=== PATIENT | female | born 1980 | race Asian ===

== ENCOUNTER 2017-06-26 15:56 | Outpatient (CLI) | payer OTHER | END 2017-06-26 15:57 | disposition home or self-care (01) | LOC: LABHHL 15:56 | PROVIDERS: ATTEND Surgery | DX: C50.911 Malignant neoplasm of unspecified site of right female breast (principal) | CPT/HCPCS: 88305; 88342; 88361 ==

== ENCOUNTER 2017-07-08 05:58 | Day surgery (SDC) | payer BC ==
[2017-07-08] MEDS ORDERED: XYLOCAINE 1% 20 mL ONE (06:31)
[2017-07-08] MEDS ORDERED: HEPARIN 10,000 UNITS/10 ML ONE (06:31)
[2017-07-08] MEDS ORDERED: MARCAINE 0.25% INFILTRATI ONE ×3 (06:31→08:05)
[2017-07-08] MEDS ORDERED: NACL 0.9% 100 ML ONE (06:31)
[2017-07-08] MEDS ORDERED: NACL BACTERIOSTATIC INFILTRATI ONE (06:37)
--- NOTE | 2017-07-08 06:58 | Anesthesia Consultation ---
Anesthesia Consult and Med Hx Date of service: 07/08/17 - Airway Anesthetic Teeth Evaluation: Good ROM Head & Neck: Adequate Mental/Hyoid Distance: Adequate Mallampati Class: Class I Intubation Access Assessment: Good (Hysterectomy without anesthetic complication ) - Pulmonary Exam CTA: Yes - Cardiac Exam Cardiac Exam: RRR - Pre-Operative Health Status ASA Pre-Surgery Classification: ASA2 Proposed Anesthetic Plan: General - Pulmonary Hx Smoking: No Hx Asthma: No - Cardiovascular System Hx Hypertension: No - Central Nervous System Hx Neuromuscular Disorder: No Hx Psychiatric Problems: Yes - Gastrointestinal Hx Gastroesophageal Reflux Disease: No - Endocrine Hx Renal Disease: No - Other Systems Hx Alcohol Use: No Hx Substance Use: No Hx Cancer: Yes
[2017-07-08] MEDS ORDERED: ANCEF/STERILE WATER 2 GM/20 ML IV NR (07:00)
--- NOTE | 2017-07-08 07:01 | Anesthesia Day of Surgery ---
Anesthesia Day of Surgery - Day of Surgery Patient Examined: Yes Patient H&P Reviewed: Yes Patient is NPO: Yes
[2017-07-08] MEDS ORDERED: LACTATED RINGERS 1,000 ML ONE (07:27)
[2017-07-08] MEDS ORDERED: ZOFRAN IV PRN (07:30)
[2017-07-08] MEDS ORDERED: VERSED ONE (07:38)
[2017-07-08] MEDS ORDERED: SUBLIMAZE ONE (07:40)
[2017-07-08] MEDS ORDERED: DIPRIVAN 10 MG/ML IV ONE ×2 (07:40→08:04)
[2017-07-08] MEDS ORDERED: PEPCID IV NR (08:00)
[2017-07-08] MEDS ORDERED: DILAUDID IV PRN (08:00)
[2017-07-08] MEDS ORDERED: XYLOCAINE 1% 20 mL INFILTRATI ONE ×2 (08:05)
[2017-07-08] MEDS ORDERED: HEPARIN 10,000 UNITS/10 ML IR ONE (08:12)
[2017-07-08] MEDS ORDERED: ZOFRAN ONE (08:36)
[2017-07-08] MEDS ORDERED: DECADRON ONE (08:36)
--- NOTE | 2017-07-08 09:03 | Short Stay Summary ---
Short Stay Documentation Date of service: 07/08/17 Narrative H&P: 37 yo F with recently diagnosed right breast cancer. The patient was referred by Dr. Beyer and Dr. Elizondo for placement of a port because she is a candidate for chemotherapy. The patient has no complaints. - History Principal diagnosis: right breast cancer H&P: obtained from office - Allergies and Medications Current Medications: Allergies latex Allergy (Verified 07/07/17 11:30) Rash Home Medications Medication Instructions Recorded Confirmed Last Taken Type Lisdexamfetamine Dimesylate 70 mg PO DAILY 07/07/17 07/07/17 Unknown History [Vyvanse] Active Medications Cefazolin Sodium (Ancef/Sterile Water 2 Gm/20 Ml) 2 gm IV PREOP NR Stop: 07/08/17 23:59 Famotidine (Pepcid) 20 mg IV PREOP NR Stop: 07/08/17 21:00 Last Admin: 07/08/17 07:29 Dose: 20 mg Hydromorphone HCl (Dilaudid) 0.5 mg IV Q10MIN PRN PRN Reason: Pain , Severe (7-10) Stop: 07/08/17 15:00 Ondansetron HCl (Zofran) 4 mg IV ONCE PRN PRN Reason: Nausea And Vomiting Stop: 07/08/17 11:00 - Brief post op/procedure progress note Date of procedure: 07/08/17 Pre-op diagnosis: right breast cancer Post-op diagnosis: same Procedure: Left subclavian port a cath placement with ultrasound guidance Anesthesia: MAC, local Findings: good placement of port without pneumothorax on post op CXR Surgeon: JOSÉ LUIS MAE Estimated blood loss: minimal Pathology: none Condition: stable - Hospital course Hospital course: Patient was observed in the PACU and discharged in stable condition once criteria was met. - Disposition Condition at discharge: Good Disposition: DC-01 TO HOME OR SELFCARE - Discharge Diagnoses (1) Breast cancer, right Status: Acute Short Stay Discharge Plan Activity: other (do not drive if taking narcotic pain meds) Diet: regular Wound: open to air, other (may shower tomorrow, pat incisions dry, do not scrub. May use soap and water. Do not submerge incisions in water until healed.) Additional Instructions: Please follow up with Dr. Beyer in 2 weeks. You do not need to follow up with Dr. Mae. Please call surgeon's office if you have fever >100.4, drainage or redness around the incision, problems with port access Follow up with: FARTUN CARO MD [Primary Care Provider] - 7 Days JOSÉ LUIS MAE DO [Staff Physician] - 7 Days LEON MITCHELL MD [Staff Physician] - 07/13/17 ALFONSO BEYER MD [Staff Physician] - 14 Days Prescriptions: traMADol [Ultram 50 MG tab] 50 mg PO Q6HR PRN #20 tablet PRN Reason: Pain
--- NOTE | 2017-07-08 09:10 | Post Anesthesia Evaluation ---
- Post Anesthesia Evaluation Patient Participated: Yes Airway Patent: Yes Stable Respiratory Function: Yes Nausea/Vomiting: No Temp > 96.8F: Yes Pain Manageable: Yes Adequeate Hydration: Yes Anesthesia Complications: No
[2017-07-08] MEDS ORDERED: PERCOCET 5/325 ONE (09:15)
--- NOTE | 2017-07-08 09:25 | Fluoroscopy Report ---
Portable chest: Port position. Operative exam demonstrating left port. The catheter tip via the left subclavian vein is located in the low SVC. The lungs are clear and fully inflated. The mediastinal contour is unremarkable. Impression: Well-positioned port. No complication identified.
[2017-07-08] MEDS ORDERED: PERCOCET 5/325 PO PRN (09:30)
[2017-07-08 10:19] VITALS: BP 136/86
--- NOTE | 2017-07-10 09:31 | Operative Report ---
Operative Report Operative Report: Please see OP report dictated
--- NOTE | 2017-07-10 11:09 | Operative Report ---
Operative Report Operative Report: Date of operation: 07/08/17 Reoperative diagnosis: Right-sided breast cancer Postoperative diagnosis: Same as above Procedure performed: Placement of left subclavian Port-A-Cath with ultrasound guidance Surgeon: Dk Scales DO Anesthesia: MAC, local Findings: On intraoperative CXR - good placement of port and no PTX EBL: <10cc Complications: none Disposition: stable to PACU HPI and indication: Patient is a 37-year-old female who has recently been diagnosed with right-sided breast cancer. The patient is seen by Dr. Beyer is now patient and Dr. Grady for hematology/oncology and deemed a candidate for chemotherapy. All of the risks associated with the procedure were discussed with the patient including but not limited to pneumothorax, infection, bleeding , malpositioned port, injury to other structures. The patient understands and all questions were answered. Consent was signed and placed on chart. Procedure in detail: The patient was identified in the preoperative area, taken back to operating room, placed on operating table in supine position. After anesthesia was induced both arms were tucked and upper chest and neck were prepped and draped in usual sterile fashion. A timeout was performed. The was placed in Trendelenburg position. Local anesthetic was infiltrated into the skin at the intended puncture site. The left subclavian vein was visualized using the ultrasound was accessed on the first stick. There was return of dark red, nonpulsatile blood. The wire was threaded under fluoroscopy without resistance and positioning confirmed. The needle was then removed. Using a 15 blade, an incision was made in the LEFT upper chest and dissection carried down through the skin and subcutaneous tissue using Bovie electrocautery. Hemostasis was achieved along the way. A pocket for the port was then created bluntly and with electrocautery. The catheter was flushed and tunneled from the pocket to the wire. A breakaway catheter/dilator sheath then inserted over the wire under fluoroscopy, and the wire and dilator removed. The catheter was then inserted through the breakaway catheter which was then removed. The catheter sat flush under the skin. Using continuous fluoroscopy, the catheter was pulled back until the tip was visualized in the right atrium. The catheter was then cut to size and the port attached in the usual fashion. The port was then sutured into place to the pre-pectoral fascia using 2-0 Vicryl interrupted sutures. The wound was irrigated and hemostasis ensured. The port was tested with heparinized saline and there was return of blood and it flushed easily. The port was then instilled with 3000 units of heparin. The deep dermal layer was then closed with interrupted 3-0 Vicryl stitches. The skin incisions were closed with 4-0 Monocryl subcuticular stitches and skin glue. Intraoperative chest x-ray did show good positioning of the port, without evidence of pneumothorax At the end of the case, all sponge, instrument, sharp counts were correct 2. The patient was awoken from anesthesia and taken to PACU in stable condition
== END 2017-07-08 10:25 | disposition home or self-care (01) ==
LOC: OR 05:58
PROVIDERS: ATTEND Surgery
DX: C50.311 Malignant neoplasm of lower-inner quadrant of right female breast (principal); Z91.040 Latex allergy status; Z90.710 Acquired absence of both cervix and uterus
CPT/HCPCS: 36561; 77001; C1769; C1788; J0690; J1100; J1644; J2250; J2405; J2704; J3010; J7120

== ENCOUNTER 2017-07-09 15:05 | Outpatient (CLI) | payer BC ==
--- NOTE | 2017-07-10 15:54 | Magnetic Resonance Report ---
BILATERAL BREAST MRI WITHOUT AND WITH CONTRAST: 07/09/17 15:05:00 CLINICAL: Newly diagnosed right breast cancer. Status post needle biopsy of a right breast mass at 6 o'clock on 06/26/17 with pathologic diagnosis of invasive mammary carcinoma with ductal and lobular features. [place] grade III/III (poorly differentiated). COMPARISON:06/17/17 bilateral mammogram. TECHNIQUE: Axial 1.0-mm T1 without, axial high resolution 2.0-mm T2 and axial 1.0-mm dynamic Vibrant high-resolution postcontrast T1 fat saturation sequences on a 1.5 Jacqueline magnet. The examination was performed with an 8 channel dedicated [place] breast coil. Post processing with CAD and subtraction was performed on an [employer] workstation. 14.0 cc of Multihance was injected without incident for the contrast portion of the exam. Consent was obtained prior to the administration of the contrast. FINDINGS: Right: Mild background parenchymal enhancement. The known cancer is an irregular band of enhancing mass in the lower inner quadrant approximately 7 cm from the nipple measuring 7.5 x 5.7 x 5.0 cm. It demonstrates heterogeneous enhancement with mixed kinetics, 547% peak enhancement and 57% type III washout. A biopsy clip is identified within the mass. A second mass in the upper outer quadrant 10.4 cm from the nipple measures 3.5 x 2.3 x 1.6 cm. It demonstrates heterogeneous enhancement with mixed kinetics, 647% peak enhancement and 38% type III washout. Together the 2 masses span approximately 9 cm from anterior to posterior. 2 suspicious right level I axillary lymph nodes. The larger lymph node measures 1.6 cm with a cortical thickness of 7 mm. Left: Minimal background parenchymal enhancement. No mass or suspicious enhancement. No suspicious left axillary or left internal mammary lymph nodes. IMPRESSION: 1. Multicentric right breast cancer with a dominant 7.5 cm mass of the lower inner quadrant and a 3.5 cm mass of the upper outer quadrant. The shape and growth pattern of the dominant mass is characteristic of invasive lobular carcinoma. 2. Two suspicious right axillary lymph nodes. 3. Negative left breast. RIGHT BI-RADS 6 -- Known Cancer LEFT BI-RADS 1 -- Negative
== END 2017-07-09 15:06 | disposition home or self-care (01) ==
LOC: SPVIMAG 15:05
PROVIDERS: ATTEND Surgery
DX: C50.311 Malignant neoplasm of lower-inner quadrant of right female breast (principal); C50.411 Malignant neoplasm of upper-outer quadrant of right female breast
CPT/HCPCS: A9577; C8908; 77059

== ENCOUNTER 2017-07-10 08:24 | Outpatient (CLI) | payer BC ==
--- NOTE | 2017-08-04 10:59 | Ultrasound Report ---
ULTRASOUND GUIDED NEEDLE CORE BIOPSY OF A RIGHT AXILLARY LYMPH NODE WITH CLIP PLACEMENT : 07/10/17 08:24:00 CLINICAL: Newly diagnosed right breast cancer. COMPARISON :06/26/17 mammogram and 07/09/17 MRI Breast FINDINGS: The procedure was explained to the patient and informed consent was obtained. Ultrasound demonstrated the suspicious lymph node. The skin in the axilla was prepped with Betadine and anesthetized with 1% lidocaine. Ultrasound guided needle core biopsy of the lymph node was performed through a small dermatotomy using 2% lidocaine with epinephrine for deep anesthesia and a 18-gauge Achieve biopsy device. 2 samples were obtained and placed in formalin. A clip was deployed within the lymph node. Hemostasis was achieved with minimal pressure and a sterile dressing was applied. The patient tolerated the procedure well and there were no apparent complications. She was discharged in good condition and was given instructions for wound care and followup. IMPRESSION: Uncomplicated ultrasound-guided needle core biopsy of a right lymph node with clip placement.
== END 2017-07-10 08:25 | disposition home or self-care (01) ==
LOC: SPVWC 08:24
PROVIDERS: ATTEND Surgery
DX: C77.3 Secondary and unspecified malignant neoplasm of axilla and upper limb lymph nodes (principal); C50.511 Malignant neoplasm of lower-outer quadrant of right female breast; Z91.040 Latex allergy status; Z90.710 Acquired absence of both cervix and uterus
CPT/HCPCS: 38505; 88305; A4648

== ENCOUNTER 2017-10-09 06:00 | Observation (INO) | payer BC, OTHER ==
[~2017-10-09 06:00] MED LIST: LACTATED RINGERS 1,000 ML IV SCH; VERSED IV NR
[2017-10-09] MEDS ORDERED: NACL BACTERIOSTATIC INFILTRATI ONE (06:36)
[2017-10-09] MEDS ORDERED: SUBLIMAZE ONE ×4 (07:28→12:48)
[2017-10-09] MEDS ORDERED: PEPCID IV ONE (07:29)
[2017-10-09] MEDS ORDERED: DECADRON ONE ×2 (07:29→11:23)
[2017-10-09] MEDS ORDERED: TYLENOL ONE (07:30)
[2017-10-09] MEDS ORDERED: NEURONTIN ONE (07:30)
[2017-10-09] MEDS ORDERED: MARCAINE 0.25% INFILTRATI ONE (07:35)
[2017-10-09] MEDS ORDERED: BACITRACIN ONE (07:35)
[2017-10-09] MEDS ORDERED: MARCAINE 0.5% 30 ML INFILTRATI ONE (07:35)
[2017-10-09] MEDS ORDERED: XYLOCAINE 1% 20 mL ONE (07:35)
[2017-10-09] MEDS ORDERED: ANCEF/STERILE WATER 2 GM/20 ML IV NR (08:00)
[2017-10-09] MEDS ORDERED: DIPRIVAN 10 MG/ML IV ONE (08:13)
[2017-10-09] MEDS ORDERED: BACITRACIN IR ONE (08:20)
[2017-10-09] MEDS ORDERED: METHYLENE BLUE IV ONE (08:20)
[2017-10-09] MEDS ORDERED: GARAMYCIN IV ONE (08:20)
[2017-10-09] MEDS ORDERED: ANCEF IR ONE (08:20)
[2017-10-09] MEDS ORDERED: NACL 0.9% IR ONE ×2 (08:20)
[2017-10-09] MEDS ORDERED: NACL 0.9% IV ONE (08:20)
[2017-10-09] MEDS ORDERED: METHYLENE BLUE ONE (08:23)
[2017-10-09] MEDS ORDERED: ZOFRAN IV PRN (09:50)
[2017-10-09] MEDS ORDERED: DEMEROL IV PRN (09:50)
--- NOTE | 2017-10-09 09:50 | Anesthesia Day of Surgery ---
Anesthesia Day of Surgery - Day of Surgery Patient Examined: Yes Patient H&P Reviewed: Yes Patient is NPO: Yes
--- NOTE | 2017-10-09 09:51 | Anesthesia Consultation ---
Anesthesia Consult and Med Hx Date of service: 10/09/17 - Airway Anesthetic Teeth Evaluation: Good ROM Head & Neck: Adequate Mental/Hyoid Distance: Adequate Mallampati Class: Class I Intubation Access Assessment: Good - Pulmonary Exam CTA: Yes - Cardiac Exam Cardiac Exam: RRR - Pre-Operative Health Status ASA Pre-Surgery Classification: ASA2 Proposed Anesthetic Plan: General - Pulmonary Hx Smoking: No Hx Asthma: No - Cardiovascular System Hx Hypertension: No - Central Nervous System Hx Neuromuscular Disorder: No Hx Psychiatric Problems: Yes - Gastrointestinal Hx Gastroesophageal Reflux Disease: No - Endocrine Hx Renal Disease: No - Other Systems Hx Alcohol Use: No Hx Substance Use: No Hx Cancer: Yes
[2017-10-09] MEDS ORDERED: GARAMYCIN ONE (10:18)
[2017-10-09] MEDS ORDERED: TORADOL ONE ×2 (11:23→13:53)
[2017-10-09] MEDS ORDERED: XYLOCAINE MPF 2% ONE (11:23)
[2017-10-09] MEDS ORDERED: ZOFRAN ONE (11:23)
--- NOTE | 2017-10-09 12:17 | Short Stay Summary ---
Short Stay Documentation Date of service: 10/09/17 - History H&P: obtained from office - Allergies and Medications Current Medications: Allergies latex Allergy (Verified 10/06/17 10:55) Rash Home Medications Medication Instructions Recorded Confirmed Last Taken Type RX: Lisdexamfetamine Dimesylate 70 mg PO DAILY 07/07/17 10/09/17 10/08/17 History [Vyvanse] RX: traMADol [Ultram 50 MG tab] 50 mg PO Q6HR PRN #20 tablet 07/08/17 10/09/17 09/18/17 Rx Active Medications Cefazolin Sodium (Ancef/Sterile Water 2 Gm/20 Ml) 2 gm IV PREOP NR Stop: 10/09/17 23:59 Hydromorphone HCl (Dilaudid) 0.5 mg IV Q10MIN PRN PRN Reason: Pain , Severe (7-10) Stop: 10/09/17 23:59 Lactated Ringer's (Lactated Ringers) 1,000 mls @ 100 mls/hr IV DIRECT PINO Meperidine HCl (Demerol) 25 mg IV ONCE PRN PRN Reason: Shivering Stop: 10/09/17 23:59 Midazolam HCl (Versed) 2 mg IV PREOP NR Stop: 10/09/17 23:59 Ondansetron HCl (Zofran) 4 mg IV ONCE PRN PRN Reason: Nausea And Vomiting - Brief post op/procedure progress note Date of procedure: 10/09/17 Pre-op diagnosis: Multicentric right breast cancer Post-op diagnosis: same Procedure: Bilateral total mastectomy and right SLNB Anesthesia: GETA Findings: Bilateral mastectomy; 2 right SLNs; radiograph specimen of right mastectomy with clip present Surgeon: ALFONSO STEVENS Parachute Mender: [place] Estimated blood loss: minimal Pathology: list (bilateral mastectomy; x2 right SLNs) Specimen disposition: to lab Condition: stable - Disposition Condition at discharge: Good [facility]position[facility] Short Stay Discharge Plan Activity: other (no heavy lifting) Diet: regular Wound: other (keep incision clean and dry; may shower in 48 hours; no baths, pools or lakes; do not rub or scrub incision) Follow up with: VIVIANE VILLEGAS MD [Primary Care Provider] - 7 Days ALFONSO STEVENS MD [Staff Physician] - 7 Days
[2017-10-09] MEDS ORDERED: BENADRYL PO PRN (12:24)
[2017-10-09] MEDS ORDERED: SODIUM CHLORIDE FLUSH SYRINGE 10 ML IV PRN (12:24)
[2017-10-09] MEDS ORDERED: TYLENOL PO PRN (12:24)
--- NOTE | 2017-10-09 12:24 | Operative Report ---
Operative Report Operative Report: Date of Service: October 09, 2017 Preoperative diagnosis: Multicentric right breast cancer of the upper outer and lower inner quadrants Postoperative diagnosis: Same Procedure: Left total mastectomy and right total mastectomy with sentinel lymph node biopsy Surgeon: Meron Beyer M.D. Asst.: GABE Connor Anesthesia: Gen. Findings: Right breast clip present within right total mastectomy radiograph specimen. 2 sentinel lymph nodes identified and negative for malignancy on frozen section of pathology Complications: None Drains: Per plastic surgery Estimated blood loss: Minimal Disposition: PACU in good condition Indications for operative procedure: This is a 37-year-old lady with stage II multicentric right breast cancer of the upper outer and lower inner quadrants. She completed 4 cycles of TCH/P under Dr. Grady and wished to proceed with surgery now followed by completion of her chemotherapy. Recommendations were to with a right mastectomy given multicentric right breast cancer and patient wished to proceed with a right total mastectomy and prophylactic left total masectomy. Patient wished to proceed with immediate tissue marinator placement by plastic reconstructive surgery. Procedure in detail: Anesthesia placed a bilateral pectoral muscle block prior to going to the operating room. The patient was taken to the operating room and was placed supine. Gen. anesthesia was administered. The right nipple was injected with radioisotope and 1 cc of methylene blue dye. Bilateral breast were prepped and draped in the normal sterile operative fashion. Timeout was performed. Typical mastectomy incision markings were made with right mastectomy marking to include biopsied area. Attention was taken towards the left breast first. A skin incision was made with a 10 blade knife and dissection taken down to the subcutaneous tissues. First began raising of the superior flap to the level of the clavicle superiorly and posteriorly to the pectoralis muscle. Followed by raising of the medial flap to the level of the sternum and posteriorly to the pectoralis muscle. Followed by raising of the lateral flap to the level of the latissimus dorsi muscle and taken down posteriorly. Followed by raising of the inferior flap to the level of the inframammary fold taken posterior to the pectoralis muscle. The mastectomy/breast was removed from the pectoralis muscle without incident. The specimen was appropriately marked and sent to pathology. Hemostasis was obtained with the bovie cautery. Attention was taken towards the right breast. A gamma probe was inserted into the axilla to identify the sentinel lymph node location. A skin incision was made with a 10 blade knife and dissection taken down to the subcutaneous tissues. First began raising of the superior flap to the level of the clavicle superiorly and posteriorly to the pectoralis muscle. Followed by raising of the medial flap to the level of the sternum and posteriorly to the pectoralis muscle. Followed by raising of the lateral flap to the level of the latissimus dorsi muscle and taken down posteriorly. The gamma probe was inserted into the axilla. The axillary fascia was opened and 2 sentinel lymph nodes were identified, all remaining counts were less than 10% of the highest SLN. Lymph nodes were sent to pathology with findings negative for malignancy noted on frozen section. Then proceeded with raising of the inferior flap to the level of the inframammary fold taken posterior to the pectoralis muscle. The mastectomy/breast was removed from the pectoralis muscle without incident. The specimen was appropriately marked and sent to radiology with findings of 1 breast clip present and sent to pathology. Hemostasis was obtained with the bovie cautery. Patient did very well. Dr. Reilly then proceeded with bilateral tissue marinator placement.
[2017-10-09] MEDS ORDERED: LACTATED RINGERS 1,000 ML IV SCH (13:00)
[2017-10-09] MEDS: DILAUDID IV PRN ×4 (15:05→17:30)
--- NOTE | 2017-10-09 16:12 | Mammography Report ---
SPECIMEN RADIOGRAPH RIGHT BREAST: 10/09/17 06:00:00 CLINICAL: Total mastectomy specimen. FINDINGS: A single biopsy clip is identified within the specimen. No distinct mass is identified. A few indeterminate calcifications.
[2017-10-09] MEDS: MORPHINE IV PRN ×2 (19:10→23:30)
[2017-10-09] MEDS: PERCOCET 5/325 PO PRN (20:37)
[2017-10-09] MEDS: COLACE PO SCH (23:30)
[2017-10-09] MEDS: REGLAN PO PRN (23:30)
[2017-10-10] MEDS: PERCOCET 5/325 PO PRN ×4 (02:19→19:50)
[2017-10-10] MEDS: MORPHINE IV PRN ×3 (04:00→16:32)
[2017-10-10] MEDS: ZOFRAN IV PRN (08:50)
[2017-10-10] MEDS: COLACE PO SCH ×2 (10:19→21:37)
--- NOTE | 2017-10-10 10:39 | Progress Note ---
Assessment and Plan This is a 37 year old lady with multicentric right breast cancer POD#1 bilateral mastectomy with right SLNB/ 1. Exam with incisions healing well. 2. Will add flexeril for muscle spasm. 3. OOB to hallway. 4. SARAH drain education. 5. D/C later today if pain in better control. Subjective Date of service: 10/10/17 Principal diagnosis: Right breast cancer-multicentric Interval history: This is a 37 year old lady with multicentric right breast cancer POD#1 bilateral mastectomy with right SLNB Objective - Constitutional Vitals: Vital Signs - 12hr 18 18 10/10/17 00:00 04:35 08:37 Temperature 97.7 F 97.9 F Pulse Rate 84 67 Respiratory 18 20 Rate Blood Pressure 153/88 129/64 [Left] General appearance: Present: no acute distress - EENT Eyes: PERRL, EOM intact ENT: hearing intact, clear oral mucosa, dentition normal Ears: bilateral: normal - Neck Neck: supple, normal ROM - Respiratory Respiratory effort: normal Respiratory: bilateral: CTA - Breasts Breasts: other (bilateral incisions c/d/i; skin well perfused; no hematoma; SARAH drains to bulb suction) - Cardiovascular Rhythm: regular Heart Sounds: Present: S1 & S2 Extremities: no ischemia, pulses intact, pulses symmetrical, No edema, normal temperature, normal color, Full ROM - Gastrointestinal General gastrointestinal: Present: soft, non-tender, non-distended Rectal Exam: deferred - Genitourinary Female genitourinary: deferred - Integumentary Integumentary: clear, warm, dry - Musculoskeletal Musculoskeletal: strength equal bilaterally - Neurologic Neurologic: CNII-XII intact, moves all extremities - Psychiatric Psychiatric: appropriate mood/affect, intact judgment & insight, memory intact, cooperative
[2017-10-10] MEDS ORDERED: ceFAZolin 2 GM in NACL 0.9% 100 ML IV ONE (10:44)
[2017-10-10] MEDS: FLEXERIL PO PRN ×2 (12:00→21:37)
[2017-10-10] MEDS: REGLAN PO PRN (12:02)
[2017-10-10] MEDS ORDERED: ANCEF/STERILE WATER 2 GM/20 ML 2 GM/20 ML SYRINGE IV ONE ×2 (13:00→15:20)
[2017-10-11] MEDS: PERCOCET 5/325 PO PRN (05:33)
[2017-10-11] MEDS: FLEXERIL PO PRN ×2 (07:33→15:45)
[2017-10-11] MEDS: MORPHINE IV PRN (10:32)
[2017-10-11] MEDS: ZOFRAN IV PRN (10:32)
[2017-10-11] MEDS: COLACE PO SCH (10:33)
[2017-10-11] MEDS ORDERED: TORADOL PO PRN (11:32)
[2017-10-11] MEDS ORDERED: NORCO 7.5/325 PO PRN (11:33)
--- NOTE | 2017-10-11 11:36 | Progress Note ---
Assessment and Plan This is a 37 year old lady with multicentric right breast cancer POD#2 bilateral mastectomy with right SLNB/ 1. Exam with incisions healing well. 2. Will add flexeril for muscle spasm. 3. OOB to hallway. 4. SARAH drain education. 5. D/C later today if pain in better control. Subjective Date of service: 10/11/17 Principal diagnosis: Right breast cancer-multicentric Interval history: This is a 37 year old lady with multicentric right breast cancer POD#2 bilateral mastectomy with right SLNB Objective - Constitutional Vitals: Vital Signs - 12hr 18 10/11/17 00:00 04:30 Temperature 97.9 F 98.0 F Pulse Rate 73 63 Respiratory 20 18 Rate Blood Pressure 114/75 131/73 [Left] General appearance: Present: no acute distress - EENT Eyes: PERRL, EOM intact ENT: hearing intact, clear oral mucosa, dentition normal Ears: bilateral: normal - Neck Neck: supple, normal ROM - Respiratory Respiratory effort: normal Respiratory: bilateral: CTA - Breasts Breasts: other (incisions clean and dry; skin well perfused; no hematoma; SARAH drains well perfused) - Cardiovascular Rhythm: regular Extremities: no ischemia, pulses intact, pulses symmetrical, No edema, normal temperature, normal color, Full ROM - Gastrointestinal General gastrointestinal: Present: soft, non-tender, non-distended - Neurologic Neurologic: CNII-XII intact, moves all extremities - Psychiatric Psychiatric: appropriate mood/affect, intact judgment & insight, memory intact, cooperative
[2017-10-11 17:41] VITALS: BP 116/79
--- NOTE | 2017-10-15 15:10 | Operative Report ---
PREOPERATIVE DIAGNOSIS: Personal history of breast cancer. POSTOPERATIVE DIAGNOSIS: Personal history of breast cancer. PROCEDURE: 1. Bilateral immediate breast reconstruction with [place] 475 mL tissue expanders. 2. Placement of FlexHD acellular dermal matrix (11 x 20 cm perforated x 2). SURGEON: Chandler Reilly MD ROLL MACHINE OPERATOR: None. ANESTHESIA: General. DRAINS: SARAH x 4. SPECIMENS: None. COMPLICATIONS: None. ESTIMATED BLOOD LOSS: 25 mL. INDICATIONS: The patient is a 37-year-old unfortunate woman with breast carcinoma, who presents for bilateral mastectomy with immediate breast reconstruction. Options for reconstruction were discussed and ultimately she has decided to proceed with bilateral tissue shed hand stage technique. She understands that additional surgery is required to remove the tissue expanders and later replaced them with implants, potentially recreate the nipple and areola complex. Nature of the surgery, technical aspects, typical recovery period, and potential risks involved were discussed fully including but not limited to infection, bleeding, scar, hematoma or seroma formation, areas of paresthesias, numbness or pain, delayed healing, wound dehiscence, implant leak, rupture, failure, need for removal or replacement or future surgery. DESCRIPTION OF PROCEDURE: The patient was already anesthetized and Dr. Beyer had completed bilateral mastectomy, sentinel lymph node dissection. The patient was reprepped and draped. Attention was first turned towards division of the inferior and inferomedial portion of the pectoralis major muscle on each side. Subpectoral pocket was developed under direct vision. Each pocket was irrigated with copious amounts of triple antibiotic solution comprised of Ancef, gentamicin and bacitracin solution. An empty 475 mL [place] tissue shed hand was then placed into the subpectoral pocket. An 11 x 20 cm perforated sheet of FlexHD was placed into the lower pole and was sutured to the inframammary fold chest wall with interrupted 0 PDS. Superiorly the edge of FlexHD was sewn to the inferior edge of the pectoralis major muscle, thereby completely covering the tissue shed hand in its entirety. The tabs were sewn down on the chest wall from the tissue shed hand. A deep 10-Serbian flat SARAH drain was placed into the space surrounding the tissue shed hand and superficial 7 mm flat SARAH drain was placed superficial to the ADM on each side. The drains exited through separate inferior lateral stab incisions and were sewn in place with 2-0 silk. Closure was then facilitated with a running 0 Vicryl suture in the subcutaneous tissue plane, 3-0 Monocryl at the level of the deep dermis in an interrupted manner and then a running subcuticular 4-0 Monocryl stitch and then DermaFlex skin glue. The skin flaps were healthy and viable with good coloration and capillary refill throughout and at the termination of the case. I therefore elected to place 300 mL of saline into each tissue shed hand once closed with a direct sterile technique. There was no undue tension on the skin and this did not influence the coloration of the skin whatsoever. The patient tolerated the procedure well and was extubated and transferred to the recovery area in stable condition. JOB# [id number] /MADONNA
== END 2017-10-11 16:45 | disposition home or self-care (01) ==
LOC: OR 06:00 → OB 15:07 → 3A 15:42 → OB 18:26
PROVIDERS: ADMIT Surgery; ATTEND Surgery
DX: C50.911 Malignant neoplasm of unspecified site of right female breast (principal)
CPT/HCPCS: 19303; 76098; 78800; 88305; 88307; 88331; 88333; 88342; 96374; 96375; 96376; A9541; C1789; G0378; J0690; J1100; J1170; J1580; J1885; J2250; J2270; J2405; J2704; J3010; J7120; Q4128; Q9968

== ENCOUNTER 2019-05-24 09:41 | Day surgery (SDC) | payer BC, OTHER ==
[~2019-05-24 09:41] MED LIST changes: +BUPIVACAINE/PF (0.25%) 2.5 MG/ML 30 ML VIAL INFILTRATI ONE; -LACTATED RINGERS 1,000 ML IV SCH; +LIDOCAINE (1%) 10 MG/1 ML VIAL 20 ML MDV ONE; -VERSED IV NR
[2019-05-24 10:14] VITALS: BP 139/65
[2019-05-24] MEDS ORDERED: LIDOCAINE (1%) 10 MG/1 ML VIAL 20 ML MDV INFILTRATI ONE (10:56)
[2019-05-24] MEDS ORDERED: BUPIVACAINE/PF (0.25%) 2.5 MG/ML 30 ML VIAL INFILTRATI ONE (10:56)
--- NOTE | 2019-05-24 16:43 | Procedure Note ---
Date of procedure: 05/24/19 Pre-op diagnosis: breast cancer Post-op diagnosis: same Procedure: removal of port a cath Findings: Consent verified on the chart. Patient placed in supine position. The left chest was prepped and draped in the usual sterile fashion and a timeout performed. Clinical anesthetic was infiltrated into the skin at the intended incision site. Incision was made through the old scar in the left upper chest and dissection carried down through the skin and subcutaneous tissue using Bovie electrocautery. The port was encountered and circumferentially dissected free from the surrounding tissues using blunt dissection and electrocautery. The catheter was removed without resistance and intact and pressure held for 5 minutes. No bleeding was seen from the tract. The port was removed from the wound and passed off the table as a specimen for identification. The cavity was irrigated and hemostasis achieved using a combination of electrocautery and pressure. There was no bleeding seen. Local anesthetic was infiltrated into the skin once again prior to closure. The wound was then closed in a 2 layer fashion. The deep dermal layer was closed with interrupted 3-0 Vicryl sutures. The skin was closed with 4 Monocryl running subcuticular stitches and skin glue. The patient tolerated the procedure well. All sharp, instrument, and sponge counts were correct 2 at the end of the case. Anesthesia: local Surgeon: JOSÉ LUIS MAE Estimated blood loss: minimal Pathology: list (port and catheter) Specimen disposition: to lab Condition: stable Disposition: other (Home)
== END 2019-05-24 11:22 | disposition home or self-care (01) ==
LOC: OR 09:41
PROVIDERS: ATTEND Surgery
DX: C50.911 Malignant neoplasm of unspecified site of right female breast (principal); Z91.040 Latex allergy status; Z88.8 Allergy status to other drugs, medicaments and biological substances; Z79.899 Other long term (current) drug therapy; Z87.891 Personal history of nicotine dependence; Z90.10 Acquired absence of unspecified breast and nipple; Z90.710 Acquired absence of both cervix and uterus; Z90.721 Acquired absence of ovaries, unilateral; Z98.82 Breast implant status; Z98.890 Other specified postprocedural states; Z85.89 Personal history of malignant neoplasm of other organs and systems
CPT/HCPCS: 88300; 88302